=== PATIENT | male | born 1935 | race American Indian/Alaskan Native ===

== ENCOUNTER 2020-10-20 05:45 | Emergency (ER) | payer SELFPAY ==
[2020-10-20 06:41] VITALS: BP 188/87
--- NOTE | 2020-10-20 06:48 | Emergency Department Report ---
ED Male HPI - General Chief complaint: Urogenital-Male Stated complaint: UNABLE TO URINATE, ELEVATED BLOOD PRESSURE Time Seen by Provider: 10/20/20 06:13 Source: patient, EMS Mode of arrival: Stretcher Limitations: No Limitations - History of Present Illness Initial comments: 84-year-old male, history of hypertension noncompliant with antihypertensive meds, presents to ED with urinary retention. Patient states he sometimes has to strain in order to urinate, but has never been fully unable to urinate like now. Denies any known history of prostate disease. EMS reports patient's blood pressure is elevated. Patient admits he does stopped taking his blood pressure medicine because he only wants to take herbs. Complaint: other -: This morning Severity: severe Quality: aching Consistency: constant Improves with: none Worsens with: none urinary retention. denies: fever, nausea/vomiting - Related Data Previous Rx's Medication Instructions Recorded Last Taken Type amLODIPine 10 mg PO DAILY #30 tab 10/20/20 Unknown Rx Allergies Allergy/AdvReac Type Severity Reaction Status Date / Time Penicillins Allergy Hives Verified 10/20/20 06:12 ED Review of Systems ROS: Stated complaint: UNABLE TO URINATE, ELEVATED BLOOD PRESSURE Other details as noted in HPI Comment: All other systems reviewed and negative Constitutional: denies: chills, fever Genitourinary: as per HPI ED Past Medical Hx - Past Medical History Hx Hypertension: Yes (not on meds) - Social History Smoking Status: Never Smoker Substance Use Type: None - Medications Home Medications: Home Medications Medication Instructions Recorded Confirmed Last Taken Type amLODIPine 10 mg PO DAILY #30 tab 10/20/20 Unknown Rx ED Physical Exam - General Limitations: No Limitations General appearance: alert, in no apparent distress - Head Head exam: Present: atraumatic, normocephalic - Eye Eye exam: Present: normal appearance, EOMI - ENT ENT exam: Present: mucous membranes moist - Neck Neck exam: Present: normal inspection - Respiratory Respiratory exam: Present: normal lung sounds bilaterally. Absent: respiratory distress - Cardiovascular Cardiovascular Exam: Present: regular rate, normal rhythm - GI/Abdominal GI/Abdominal exam: Present: soft, tenderness (Suprapubic). Absent: distended - Extremities Exam Extremities exam: Present: normal inspection - Neurological Exam Neurological exam: Present: alert, oriented X3 - Psychiatric Psychiatric exam: Present: normal affect, normal mood - Skin Skin exam: Present: warm, dry, intact, normal color ED Course Vital Signs 10/20/20 06:19 Temperature 98.0 F Pulse Rate 80 Respiratory 18 Rate Blood Pressure 188/87 [Left] O2 Sat by Pulse 99 Oximetry ED Medical Decision Making - Medical Decision Making 84-year-old male with history of hypertension presents to ED with urinary retention. Grijalva was placed with patient that it radiated up.. Patient feels much better at this time. Blood pressure remains elevated. Patient reports he does not want to take any blood pressure medication because of side effects that he had in the past. Patient reports he took himself off of any blood pressure medications and is now taking herbs only. Patient states "Whatever happens, happens." Will still give prescription for Norvasc. Advised outpatient follow- up for blood pressure control and also follow-up with urologist. Patient swi tched to a leg bag. Return precautions given. - Differential Diagnosis urinary retention, prostate CA, BPH, HTN Critical care attestation.: If time is entered above; I have spent that time in minutes in the direct care of this critically ill patient, excluding procedure time. ED Disposition Clinical Impression: Urinary retention, Uncontrolled hypertension Disposition: -01 TO HOME OR SELFCARE Is pt being admited?: No Condition: Stable Instructions: Acute Urinary Retention, Male, [id number], Hypertension (ED) Prescriptions: amLODIPine 10 mg PO DAILY #30 tab Referrals: DAY MONTILLA MD [Staff Physician] - 3-5 Days NURY THEODORE MD [Staff Physician] - 3-5 Days [facility] [Provider Group] - 3-5 Days Time of Disposition: 07:41
[2020-10-20 06:59] LABS: Bilirubin,Urine NEG (Negative); Blood,Urine SM (Negative); Color,Urine Straw (Yellow); Urobilinogen,Urine < 2.0 mg/dL (<2.0); WBC,Urine < 1.0 /HPF (0.0-6.0)
== END 2020-10-20 08:51 | disposition home or self-care (01) ==
LOC: ED 05:45
DX: R33.9 Retention of urine, unspecified (principal); I10 Essential (primary) hypertension; Z79.899 Other long term (current) drug therapy; Z88.0 Allergy status to penicillin
CPT/HCPCS: 51702; 81001; 99283

== ENCOUNTER 2021-05-15 12:52 | Emergency (ER) | payer OTHER ==
[2021-05-15 15:26] LABS: Basophils % (Auto) 0.3 % (0.0-1.8); Eosinophils # (Auto) 0.1 K/mm3 (0.0-0.4); Eosinophils % (Auto) 0.9 % (0.0-4.3); Hematocrit 37.1 % (35.5-45.6); Hemoglobin 11.9 gm/dl (11.8-15.2); Lymphocytes # (Auto) 1.2 K/mm3 (1.2-5.4); Lymphocytes % (Auto) 21.4 % (13.4-35.0); Mean Corpuscular HGB Conc 32 % (32-34); Mean Corpuscular Volume 79 fl (84-94); Monocytes # (Auto) 0.5 K/mm3 (0.0-0.8); Monocytes % (Auto) 8.5 % (0.0-7.3); Platelet Count 230 K/mm3 (140-440); Red Blood Count 4.69 M/mm3 (3.65-5.03); Red Cell Distribution Width 14.6 % (13.2-15.2)
[2021-05-15 16:57] LABS: Bilirubin,Urine NEG (Negative); Blood,Urine NEG (Negative); Color,Urine Yellow (Yellow); Urobilinogen,Urine < 2.0 mg/dL (<2.0); WBC,Urine < 1.0 /HPF (0.0-6.0)
[2021-05-15] MEDS ORDERED: POTASSIUM CHLORIDE ER 20 MEQ TAB PO ONE (22:50)
[2021-05-15] MEDS ORDERED: TAMSULOSIN 0.4 MG CAP PO ONE (23:05)
[2021-05-15] MEDS ORDERED: hydrALAZINE 20 MG/1 ML INJ IV ONE (23:09)
--- NOTE | 2021-05-15 23:57 | Emergency Department Report ---
HPI - General Chief Complaint: Urogenital-Male Time Seen by Provider: 05/15/21 22:49 - HPI HPI: This is an 85-year-old male presents to the emergency department with a complaint of a history of enlarged prostate and urinary retention. Over the past 2 nights the patient says that he has been having to urinate every few minutes and does not feel like he is emptying his bladder completely. He denies any lower abdominal or suprapubic discomfort. The patient was seen for the same complaints back in October of this year. At that time he had a Grijalva catheter placed and says that he followed up outpatient with a urologist, but "we did not get along." Around that time the patient was placed on Flomax. He says he was also told that his urinary retention issues are secondary to constipation issues. Patient presents with a very elevated blood pressure. He does appear to have a history of hypertension but is noncompliant with antihypertensive med ication and just takes herbs and vitamins. ED Past Medical Hx - Past Medical History Previous Medical History?: Yes Hx Hypertension: Yes (not on meds) - Surgical History Past Surgical History?: Yes Additional Surgical History: throat - Social History Smoking Status: Never Smoker Substance Use Type: None - Medications Home Medications: Home Medications Medication Instructions Recorded Confirmed Last Taken Type amLODIPine 10 mg PO DAILY #30 tab 10/20/20 Unknown Rx Tamsulosin [Flomax] 0.4 mg PO QDAY #30 cap 05/16/21 Unknown Rx amLODIPine 10 mg PO DAILY #30 tab 05/16/21 Unknown Rx ED Review of Systems ROS: Stated complaint: NOT URINATING/PROSTATE Other details as noted in HPI Comment: All other systems reviewed and negative Constitutional: denies: chills, fever Eyes: denies: eye pain, vision change ENT: denies: ear pain, throat pain Respiratory: denies: cough, shortness of breath Cardiovascular: denies: chest pain, palpitations Gastrointestinal: denies: abdominal pain, vomiting Genitourinary: urgency, frequency. denies: hematuria Musculoskeletal: denies: back pain, arthralgia Skin: denies: rash, lesions Neurological: denies: headache, weakness Physical Exam - Physical Exam Vital Signs: Vital Signs 05/15/21 05/15/21 05/15/21 13:46 23:18 23:31 Temperature 97.8 F Pulse Rate 95 H Respiratory 20 Rate Blood Pressure 234/128 Blood Pressure 208/97 [Right] O2 Sat by Pulse 98 97 99 Oximetry 05/15/21 23:45 Temperature Pulse Rate 86 Respiratory Rate Blood Pressure 234/128 Blood Pressure [Right] O2 Sat by Pulse 98 Oximetry Physical Exam: GENERAL: The patient is well-developed well-nourished. HENT: Normocephalic. Atraumatic. Patient has moist mucous membranes. EYES: Extraocular motions are intact. NECK: Supple. Trachea is midline. CHEST/LUNGS: Clear to auscultation. There is no respiratory distress noted. HEART/CARDIOVASCULAR: Regular. There is no tachycardia. There is no murmur. ABDOMEN: Abdomen is soft, nontender. Patient has normal bowel sounds. SKIN: Skin is warm and dry. NEURO: The patient is awake, alert, and oriented. The patient is cooperative. The patient has no focal neurologic deficits. Normal speech. MUSCULOSKELETAL: There is no tenderness or deformity. There is no limitation range of motion. : Uncircumcised but unable to completely retract the foreskin. ED Course Vital Signs 05/15/21 05/15/21 05/15/21 13:46 23:18 23:31 Temperature 97.8 F Pulse Rate 95 H Respiratory 20 Rate Blood Pressure 234/128 Blood Pressure 208/97 [Right] O2 Sat by Pulse 98 97 99 Oximetry 05/15/21 23:45 Temperature Pulse Rate 86 Respiratory Rate Blood Pressure 234/128 Blood Pressure [Right] O2 Sat by Pulse 98 Oximetry ED Medical Decision Making - Lab Data Result diagrams: 05/15/21 14:35 05/15/21 14:35 Lab Results 05/15/21 05/15/21 05/15/21 Range/Units 14:35 14:35 16:30 WBC 5.8 (4.5-11.0) K/mm3 RBC 4.69 (3.65-5.03) M/mm3 Hgb 11.9 (11.8-15.2) gm/dl Hct 37.1 (35.5-45.6) % MCV 79 L (84-94) fl MCH 26 L (28-32) pg MCHC 32 (32-34) % RDW 14.6 (13.2-15.2) % Plt Count 230 (140-440) K/mm3 Lymph % (Auto) 21.4 (13.4-35.0) % Pepin % (Auto) 8.5 H (0.0-7.3) % Eos % (Auto) 0.9 (0.0-4.3) % Baso % (Auto) 0.3 (0.0-1.8) % Lymph # (Auto) 1.2 (1.2-5.4) K/mm3 Pepin # (Auto) 0.5 (0.0-0.8) K/mm3 Eos # (Auto) 0.1 (0.0-0.4) K/mm3 Baso # (Auto) 0.0 (0.0-0.1) K/mm3 Seg Neutrophils % 68.9 (40.0-70.0) % Seg Neutrophils # 4.0 (1.8-7.7) K/mm3 Sodium 138 (137-145) mmol/L Potassium 3.0 L (3.6-5.0) mmol/L Chloride 99.1 (98-107) mmol/L Carbon Dioxide 27 (22-30) mmol/L Anion Gap 15 mmol/L BUN 19 (9-20) mg/dL Creatinine 1.4 H (0.8-1.3) mg/dL Estimated GFR 58 ml/min BUN/Creatinine Ratio 14 % Glucose 103 H (75-100) mg/dL Calcium 9.0 (8.4-10.2) mg/dL Total Bilirubin 0.70 (0.1-1.2) mg/dL AST 26 (5-40) units/L ALT 24 (7-56) units/L Alkaline Phosphatase 119 (35-129) units/L Total Protein 8.1 (6.3-8.2) g/dL Albumin 4.0 (3.9-5) g/dL Albumin/Globulin Ratio 1.0 % Urine Color Yellow (Yellow) Urine Turbidity Clear (Clear) Urine pH 7.0 (5.0-7.0) Ur Specific [place] 1.006 (1.003-1.030) Urine Protein 30 mg/dl (Negative) mg/dL Urine Glucose (UA) Neg (Negative) mg/dL Urine Ketones Neg (Negative) mg/dL Urine Blood Neg (Negative) Urine Nitrite Neg (Negative) Urine Bilirubin Neg (Negative) Urine Urobilinogen < 2.0 (<2.0) mg/dL Ur Leukocyte Esterase Neg (Negative) Urine WBC (Auto) < 1.0 (0.0-6.0) /HPF Urine RBC (Auto) 1.0 (0.0-6.0) /HPF U Epithel Cells (Auto) < 1.0 (0-13.0) /HPF - Medical Decision Making This patient presents to the emergency department with a complaint of some urinary retention issues in which he has increased urinary frequency and urgency. The patient is able to urinate some but just does not fully empty the bladder. Labs have been mostly unremarkable including CBC, metabolic panel and urinalysis, except for some hypokalemia with a potassium of 3. The patient has a history of urinary retention and what sounds like enlarged prostate. As the patient is able to urinate some throughout his ED course, and denies any lower abdominal or suprapubic pain, I did not feel that he required a Grijalva catheter at this time. The patient will be placed on Flomax and will need outpatient fol low-up with urology. The patient also asked me about his concern regarding his inability to completely retract his foreskin over the glans of the penis. However, the foreskin does not appear infected and this has been an ongoing issue for him over the past 8 months. The patient presents with very elevated blood pressure. He appears to have some history of hypertension but also is noncompliant with any medications and attempts to control it using herbs and vitamins. The patient was given 2 doses of hydralazine and his blood pressure came down slightly. He is otherwise asymptomatic from his hypertension. The patient will be discharged home with outpatient referral for primary care and urology. He has been started on Flomax and amlodipine. Critical Care Time: No Critical care attestation.: If time is entered above; I have spent that time in minutes in the direct care of this critically ill patient, excluding procedure time. ED Disposition Clinical Impression: Urinary retention, Hypokalemia Hypertension Qualifiers: Hypertension type: primary hypertension Qualified Code(s): I10 - Essential (primary) hypertension Disposition: -01 TO HOME OR SELFCARE Is pt being admited?: No Condition: Stable Instructions: Hypokalemia, Potassium Content of Foods, Acute Urinary Retention, Male, Hypertension, Adult, Hypertension (ED) Additional Instructions: Please follow-up with a primary care physician in the next few days. I have given you a referral for a local primary care physician, Dr. Claudio, and a primary care clinic, [place]. I am giving you a referral for a local urologist, Dr. Rainey, to follow-up regarding your issues with urinary retention and what I believe may also be an enlarged prostate. I am starting you on Flomax to help with the urinary retent ion issues. Please try to stay away from foods that are high in salt and caffeinated products. I am starting you on a blood pressure medication called amlodipine/Norvasc. This medication is taken once per day, usually in the morning. Keep a blood pressure log. Return to the emergency department with any worsening of your symptoms, new or concerning symptoms not addressed during this current emergency department visit, or with any acute distress. Prescriptions: amLODIPine 10 mg PO DAILY #30 tab Tamsulosin [Flomax] 0.4 mg PO QDAY #30 cap Referrals: DAY RAINEY MD [Staff Physician] - 2-3 Days NURY CLAUDIO MD [Staff Physician] - 2-3 Days [facility] [Provider Group] - 2-3 Days Time of Disposition: 01:04
[2021-05-16] MEDS ORDERED: hydrALAZINE 20 MG/1 ML INJ IV ONE (00:16)
[2021-05-16 01:30] VITALS: BP 181/83
== END 2021-05-16 01:47 | disposition home or self-care (01) ==
LOC: ED 12:52
DX: R33.9 Retention of urine, unspecified (principal); E87.6 Hypokalemia; I10 Essential (primary) hypertension; Z98.890 Other specified postprocedural states
CPT/HCPCS: 36415; 80053; 81001; 85025; 96374; 96376; 99283; J0360

== ENCOUNTER 2021-06-23 19:26 | Emergency (ER) | payer OTHER ==
[2021-06-23] MEDS ORDERED: TAMSULOSIN 0.4 MG CAP PO ONE (20:02)
[2021-06-23] MEDS ORDERED: cloNIDine 0.1 MG TAB PO ONE (20:02)
--- NOTE | 2021-06-23 20:07 | Emergency Department Report ---
HPI - General Chief Complaint: Urogenital-Male Time Seen by Provider: 06/23/21 19:55 - HPI HPI: 85-year-old -[place] male presents to the emergency department with a complaint of some issues with urinary retention starting this morning. The patient has been seen in the past for this issue but says that he does well when he is on the Flomax, but he just ran out. He has an appointment to establish care with a urologist, Dr. Rainey, on July 07. He says that he has difficulty urinating but is able to urinate to some extent. He denies any dysuria, hematuria, penile discharge, fever, lower abdominal or pelvic pain. He has not taken anything for his symptoms prior to presentation today. ED Past Medical Hx - Past Medical History Previous Medical History?: Yes Hx Hypertension: Yes (not on meds) - Surgical History Past Surgical History?: Yes Additional Surgical History: throat - Social History Smoking Status: Never Smoker Substance Use Type: None - Medications Home Medications: Home Medications Medication Instructions Recorded Confirmed Last Taken Type amLODIPine 10 mg PO DAILY #30 tab 05/16/21 Unknown Rx Tamsulosin [Flomax] 0.4 mg PO QDAY #30 cap 06/23/21 Unknown Rx amLODIPine 10 mg PO DAILY #30 tab 06/23/21 Unknown Rx ED Review of Systems ROS: Stated complaint: CAN'T URINE Other details as noted in HPI Comment: All other systems reviewed and negative Constitutional: denies: chills, fever Eyes: denies: eye pain, vision change ENT: denies: ear pain, throat pain Respiratory: denies: cough, shortness of breath Cardiovascular: denies: chest pain, palpitations Gastrointestinal: denies: abdominal pain, vomiting Genitourinary: other (urinary retention). denies: dysuria, hematuria, discharge Musculoskeletal: denies: back pain, arthralgia Skin: denies: rash, lesions Neurological: denies: headache, weakness Physical Exam - Physical Exam Vital Signs: Vital Signs 06/23/21 19:52 Temperature 98.0 F Pulse Rate 79 Respiratory 13 Rate Blood Pressure 194/84 O2 Sat by Pulse 98 Oximetry Physical Exam: GENERAL: The patient is well-developed well-nourished. HENT: Normocephalic. Atraumatic. Patient has moist mucous membranes. EYES: Extraocular motions are intact. NECK: Supple. Trachea is midline. CHEST/LUNGS: Clear to auscultation. There is no respiratory distress noted. HEART/CARDIOVASCULAR: Regular. There is no tachycardia. There is no murmur. ABDOMEN: Abdomen is soft, nontender. Patient has normal bowel sounds. There is no abdominal distention. SKIN: Skin is warm and dry. NEURO: The patient is awake, alert, and oriented. The patient is cooperative. Normal speech. MUSCULOSKELETAL: There is no tenderness or deformity. There is no limitation range of motion. ED Course Vital Signs 06/23/21 19:52 Temperature 98.0 F Pulse Rate 79 Respiratory 13 Rate Blood Pressure 194/84 O2 Sat by Pulse 98 Oximetry ED Medical Decision Making - Lab Data Lab Results 06/23/21 Range/Units 20:45 Urine Color [place] (Yellow) Urine Turbidity Slightly-cloudy (Clear) Urine pH 7.0 (5.0-7.0) Ur Specific [place] 1.014 (1.003-1.030) Urine Protein 30 mg/dl (Negative) mg/dL Urine Glucose (UA) Neg (Negative) mg/dL Urine Ketones Neg (Negative) mg/dL Urine Blood Neg (Negative) Urine Nitrite Neg (Negative) Urine Bilirubin Neg (Negative) Urine Urobilinogen < 2.0 (<2.0) mg/dL Ur Leukocyte Esterase Neg (Negative) Urine WBC (Auto) 2.0 (0.0-6.0) /HPF Urine RBC (Auto) 4.0 (0.0-6.0) /HPF U Epithel Cells (Auto) < 1.0 (0-13.0) /HPF Urine Mucus Few /HPF - Medical Decision Making This patient presents to the emergency department with some mild urinary retention. He is able to urinate, but does not completely empty his bladder. He appears to have a history of an enlarged prostate that could be some of the cause of his symptoms. He denies any abdominal or suprapubic discomfort. Abdomen is soft and nondistended. Urinalysis does not show any urinary tract infection or significant hematuria. The patient does not appear to require a catheter at this time. Patient has asymptomatic hypertension. He was given a dose of Catapres here and given a refill of his amlodipine. We discussed staying away from foods that are high in salt and caffeinated products and keeping a blood pressure log. The patient has been given a prescription for his Flomax. He has an appointment in 2 weeks with urology. He will return to the emergency department with any worsening of symptoms or with any acute distress. Critical Care Time: No Critical care attestation.: If time is entered above; I have spent that time in minutes in the direct care of this critically ill patient, excluding procedure time. ED Disposition Clinical Impression: Asymptomatic hypertension, Urinary retention Disposition: HOME / SELF CARE / HOMELESS Is pt being admited?: No Condition: Stable Instructions: Hypertension (ED) Additional Instructions: Please follow-up with your primary care physician in the next few days. Take all medications as prescribed. Try to stay away from foods that are high in salt and caffeinated products. Keep a blood pressure log. Return to the emergency department with any worsening of your symptoms, new or concerning symptoms not addressed during this current emergency department visit, or with any acute distress. Prescriptions: amLODIPine 10 mg PO DAILY #30 tab Tamsulosin [Flomax] 0.4 mg PO QDAY #30 cap Referrals: PRIMARY MD DOMINGUEZ [Primary Care Provider] - 3-5 Days DAY RAINEY MD [Staff Physician] - 3-5 Days Time of Disposition: 21:54
[2021-06-23 21:20] LABS: Bilirubin,Urine NEG (Negative); Blood,Urine NEG (Negative); Color,Urine Amber (Yellow); Mucus,Urine FEW /HPF; Urobilinogen,Urine < 2.0 mg/dL (<2.0)
[2021-06-23 22:14] VITALS: BP 161/76
== END 2021-06-23 22:14 | disposition home or self-care (01) ==
LOC: ED 19:26
DX: R33.9 Retention of urine, unspecified (principal); I10 Essential (primary) hypertension
CPT/HCPCS: 81001; 99283

== ENCOUNTER 2021-09-03 14:28 | Emergency (ER) | payer OTHER ==
[2021-09-03 15:23] VITALS: BP 186/94
[2021-09-03] MEDS ORDERED: ACETAMINOPHEN 325 MG TAB PO ONE (16:32)
[2021-09-03] MEDS ORDERED: amLODIPine 5 MG TAB PO ONE (16:32)
--- NOTE | 2021-09-03 16:34 | Emergency Department Report ---
ED General Adult HPI - General Chief complaint: Extremity Problem,Nontraumatic Stated complaint: PAIN IN HIPS PUI?: No Time Seen by Provider: 09/03/21 16:04 Source: patient, RN notes reviewed, old records reviewed Mode of arrival: Ambulatory Limitations: No Limitations - History of Present Illness Initial comments: The patient is a pleasant 85-year-old gentleman, with a history of BPH/urinary retention, and hypertension, who does not have a local primary medical doctor, who presents to the ER today with a complaint of bilateral hip pain, and paralumbar back pain that moves down his right lower extremity for a few weeks to a few months. There is no trauma. Patient denies headache, neck pain, chest pain, abdominal pain extremity weakness, bladder/bowel incontinence, and saddle anesthesia. Symptoms intermittent, increased with palpation, range of motion, and decreased with rest. Lives at home by himself, walks with a walker, does not have stairs. Reports mechanical fall 6 to 8 weeks ago. -: Gradual, week(s) Location: back Radiation: extremity Quality: aching Consistency: intermittent Improves with: rest Worsens with: movement - Related Data Previous Rx's Medication Instructions Recorded Last Taken Type Tamsulosin [Flomax] 0.4 mg PO QDAY #30 cap 06/23/21 Unknown Rx amLODIPine 10 mg PO DAILY #30 tab 06/23/21 Unknown Rx Acetaminophen [Non-Aspirin Extra 500 mg PO Q6HR PRN #30 tablet 09/03/21 Unknown Rx Strength] Ibuprofen [Motrin] 200 mg PO Q6H PRN #30 tablet 09/03/21 Unknown Rx amLODIPine 10 mg PO DAILY #30 tab 09/03/21 Unknown Rx Allergies Allergy/AdvReac Type Severity Reaction Status Date / Time Penicillins Allergy Hives Verified 10/20/20 06:12 ED Review of Systems ROS: Stated complaint: PAIN IN HIPS Other details as noted in HPI Constitutional: denies: fever Eyes: denies: eye discharge ENT: denies: epistaxis Respiratory: denies: cough Cardiovascular: denies: chest pain Gastrointestinal: denies: abdominal pain Genitourinary: denies: dysuria Musculoskeletal: back pain, arthralgia, myalgia Neurological: paresthesias. denies: weakness ED Past Medical Hx - Past Medical History Hx Hypertension: Yes (not on meds) - Surgical History Additional Surgical History: throat - Social History Smoking Status: Never Smoker Substance Use Type: None - Medications Home Medications: Home Medications Medication Instructions Recorded Confirmed Last Taken Type Tamsulosin [Flomax] 0.4 mg PO QDAY #30 cap 06/23/21 Unknown Rx amLODIPine 10 mg PO DAILY #30 tab 06/23/21 Unknown Rx Acetaminophen [Non-Aspirin Extra 500 mg PO Q6HR PRN #30 tablet 09/03/21 Unknown Rx Strength] Ibuprofen [Motrin] 200 mg PO Q6H PRN #30 tablet 09/03/21 Unknown Rx amLODIPine 10 mg PO DAILY #30 tab 09/03/21 Unknown Rx ED Physical Exam - General Limitations: No Limitations General appearance: alert, in no apparent distress - Head Head exam: Present: atraumatic, normocephalic - Eye Eye exam: Present: normal appearance, EOMI. Absent: nystagmus - ENT ENT exam: Present: normal exam, normal orophraynx, mucous membranes moist, normal external ear exam - Neck Neck exam: Present: normal inspection, full ROM. Absent: tenderness, meningismus - Respiratory Respiratory exam: Present: normal lung sounds bilaterally. Absent: respiratory distress, wheezes, rales, rhonchi, stridor, decreased breath sounds - Cardiovascular Cardiovascular Exam: Present: regular rate, normal rhythm, normal heart sounds. Absent: bradycardia, tachycardia, irregular rhythm, systolic murmur, diastolic murmur, rubs, gallop - GI/Abdominal GI/Abdominal exam: Present: soft, normal bowel sounds. Absent: distended, tenderness, guarding, rebound, rigid, pulsatile mass - Rectal Rectal exam: Present: deferred - Extremities Exam Extremities exam: Present: normal inspection, full ROM, other (2+ pulses noted in the bilateral upper and lower extremities. There is no palpable cord. negative Homans sign. Muscular compartments are soft. The pelvis is stable.). Absent: calf tenderness - Back Exam Back exam: Present: normal inspection, paraspinal tenderness. Absent: tenderness, CVA tenderness (R), CVA tenderness (L) - Neurological Exam Neurological exam: Present: alert, oriented X3, normal gait, reflexes normal (Downgoing plantar reflexes bilaterally), other (No facial droop. Tongue midline. Extraocular movements intact bilaterally. Facial sensation intact to light touch in V1, V2, V3 distribution bilaterally. 5 and a 5 strength in 4 extremities. Sensation intact to light touch in 4 extremities.). Absent: motor sensory deficit - Psychiatric Psychiatric exam: Present: normal affect, normal mood - Skin Skin exam: Present: warm, dry, intact, normal color. Absent: rash ED Course Vital Signs 09/03/21 15:23 Temperature 98 F Pulse Rate 83 Respiratory 16 Rate Blood Pressure 186/94 [Right] O2 Sat by Pulse 98 Oximetry ED Medical Decision Making - Lab Data Vital Signs 09/03/21 15:23 Temperature 98 F Pulse Rate 83 Respiratory 16 Rate Blood Pressure 186/94 [Right] O2 Sat by Pulse 98 Oximetry - Medical Decision Making Differential diagnosis, including but not limited to: Radiculopathy, arthritis, encounter for case management evaluation, chronic hypertension Assessment and plan: 85-year-old gentleman, who was afebrile, with reassuring vital signs, clinically sober, who walks with a steady gait, presenting to the ER with a subacute complaints of what appears to be arthritis or radicular pain. Has 5 out of 5 strength in 4 extremities, appropriate sensation to light touch, with downgoing plantar reflexes and brisk reflexes, denies bladder/bowel incontinence, saddle anesthesia, no fevers or chills, no abdominal tenderness, no pulsatile abdominal mass, who ambulates with a cane and with a steady gait. Extensive discussion had with patient regarding natural history of lumbar radiculopathy, as well as arthritis. Patient lives at home, by himself, and has had some falls in the past, although not for the past 6 weeks. Contacted case management on-call,CASPER RAMACHANDRAN Discussed patient's history, and concern with her current social situation. The patient is awake, ambulatory with a steady gait with a cane, is of sound mind and exhibits decision-making capacity and is currently able to care for himself independently. However, have placed patient in for case management evaluation for home physical therapy and/or rehab. We will also discharged with rolling walker. We will also discharge with Norvasc refill. Hypertension is chronic. Does not appear to be acutely decompensated. Please reference the [employer] clinical policy on asymptomatic hypertension. Extensive discussion had with the patient regarding need to follow-up with an outpatient primary care doctor, which he has not done in a few years, and also on the need to participate with outpatient physical therapy and rehabilitation. Critical care attestation.: If time is entered above; I have spent that time in minutes in the direct care of this critically ill patient, excluding procedure time. ED Disposition Clinical Impression: Elevated blood pressure reading, Case management patient, Radicular pain Disposition: 01 HOME / SELF CARE / HOMELESS Is pt being admited?: No Does the pt Need Aspirin: No Condition: Good Instructions: Radicular Pain, Hypertension, Adult Additional Instructions: Please use rolling walker as instructed for assistance with ambulation. Patient is placed for case management consultation. Patient should be contacted by a case management department within the next few days to discuss outpatient options for physical therapy, and/or rehabilitation. It is also important that the patient follow-up with an outpatient medical docto r within the next 3 to 5 days for repeat checkup and evaluation. Patient is found to have elevated blood pressure today which appears to be chronic. Please take the blood pressure medication as directed. Long-term complications of hypertension elevated blood pressure include stroke, heart attack, disability, paralysis, and loss of quality of life. Patient may alternate ice packs and heat packs as needed for physical pain, and also take the prescribed pain medications. Patient most likely has arthritis and lumbar radiculopathy. Patient will likely benefit from physical therapy. It is important to follow-up with your primary care doctor to make certain that outpatient physical therapy is initiated. Please return to the emergency room right away with new pain, worsened pain, migration of pain, projectile vomiting, change in mental status, confusion, inability tolerate liquid feeds, new, worsened or different symptoms not present on the initial emergency room evaluation. Prescriptions: amLODIPine 10 mg PO DAILY #30 tab Ibuprofen [Motrin] 200 mg PO Q6H PRN #30 tablet PRN Reason: Pain , Severe (7-10) Acetaminophen [Non-Aspirin Extra Strength] 500 mg PO Q6HR PRN #30 tablet PRN Reason: Pain , Severe (7-10) Referrals: [facility] [Provider Group] - 3-5 Days NURY THEODORE MD [Staff Physician] - 3-5 Days
[2021-09-03] MEDS ORDERED: IBUPROFEN 200 MG TAB PO ONE (17:00)
== END 2021-09-03 18:00 | disposition home or self-care (01) ==
LOC: ED 14:28
DX: M54.10 Radiculopathy, site unspecified (principal); Z71.89 Other specified counseling; I10 Essential (primary) hypertension; Z88.0 Allergy status to penicillin; Z79.899 Other long term (current) drug therapy
CPT/HCPCS: 99281